=== PATIENT | male | born 1955 | race Caucasian/White ===

== ENCOUNTER 2021-05-11 14:18 | Observation (INO) ==
[2021-05-11] MEDS ORDERED: Isovue-370 500 ML BOTTLE IVP ONE (14:50)
[2021-05-11 15:03] LABS: Eosinophils # 0.2 K/mcL (0.0-0.6); Hematocrit 54.5 % (37.5-50.1); Hemoglobin 18.6 g/dL (12.9-16.9); Mean Corpuscular HGB Conc 34.1 g/dL (31.6-35.5); Mean Corpuscular Hemoglobin 33.1 pg (28.0-33.3); Mean Platelet Volume 10.3 fL (9.4-12.4); Monocytes # 0.6 K/mcL (0.0-1.3); Platelet Count 225 K/mcL (140-400); Red Blood Count 5.62 M/mcL (4.19-5.50); Red Cell Distribution Width 13.4 % (11.5-14.5); White Blood Count 9.9 K/mcL (4.3-11.1)
[2021-05-11 15:08] LABS: Prothrombin Time 11.3 Seconds (9.4-12.1)
[2021-05-11 15:11] LABS: Activated Partial Thrombo Time 31.7 Seconds (26.0-36.0)
[2021-05-11 15:22] LABS: Lymphocytes # 4.6 K/mcL (0.6-4.6); Neutrophils # 4.6 K/mcL (1.6-8.9); Platelet Estimate Normal (Normal); Reactive Lymphocytes Present (Not Present)
[2021-05-11 15:23] LABS: Alanine Aminotransferase 34 Units/L (7-52); Albumin 4.5 g/dL (3.5-5.7); Albumin/Globulin Ratio 1.6 (1.1-2.2); Alkaline Phosphatase 90 Units/L (34-104); Aspartate Amino Transferase 31 Units/L (13-39); BUN/Creatinine Ratio 8 (6-26); Bilirubin,Total 0.3 mg/dL (0.3-1.0); Blood Urea Nitrogen 8 mg/dL (8-23); Calcium 9.2 mg/dL (8.6-10.3); Carbon Dioxide 23 mEq/L (23-29); Chloride 103 mEq/L (98-107); Globulin 2.9 g/dL (2.4-3.5); Glucose 221 mg/dL (70-105); Osmolality,Calculated 289 (280-300); Potassium 3.7 mEq/L (3.5-5.1); Sodium 137 mEq/L (136-145); Total Protein 7.4 g/dL (6.4-8.9); eGFR For African Americans > 60 (> 60); eGFR For Non-African Americans > 60 (> 60)
[2021-05-11 15:48] LABS: Influenza A PCR Negative (Negative); Influenza B PCR Negative (Negative); Resp. Syncytial Virus PCR Negative (Negative); SARS-CoV-2 by PCR (In House) Negative (Negative)
[2021-05-11] MEDS ORDERED: Perflutren Lipid Microsphere 1.3 ML in 0.9 % Sodium Chloride 8.7 ML IVP PRN (16:52)
[2021-05-11] MEDS ORDERED: Naloxone 0.4 MG/ML INJ IVP PRN (16:56)
[2021-05-11] MEDS ORDERED: Melatonin 3 MG TABLET PO PRN (16:56)
[2021-05-11] MEDS ORDERED: Ondansetron 4 MG/2 ML VIAL IVP PRN (16:56)
[2021-05-11] MEDS ORDERED: Acetaminophen 325 MG TABLET PO PRN (16:56)
[2021-05-11] MEDS ORDERED: Nicotine 2 MG GUM BC PRN (16:57)
[2021-05-11 17:18] LABS: Chol/HDL Ratio 2.7 (0-4.9); Cholesterol 174 mg/dL (< 200); HDL Cholesterol 64 mg/dL (40-59); LDL Cholesterol,Calculated 52 mg/dL (< 100); Triglycerides 290 mg/dL (< 150)
[2021-05-11 17:57] LABS: Estimated Average Glucose 123 mg/dl; Hemoglobin A1C 5.9 %
[2021-05-11] MEDS: Nicotine 21 MG PATCH.TD24 TD SCH (21:50)
[2021-05-11] MEDS: Aspirin Enteric Coated 81 MG Tablet PO SCH (21:51)
[2021-05-11] MEDS: Nitrofurantoin (BID) 100 MG CAPSULE PO SCH (21:51)
[2021-05-12 02:55] VITALS: PULSE 59
[2021-05-12] MEDS ORDERED: *HR* Enoxaparin 40 MG/0.4 ML SYRINGE SQ SCH (06:00)
[2021-05-12 07:13] VITALS: BP 151/88; TEMP 98.3; O2SAT 94
[2021-05-12] MEDS: Nicotine 21 MG PATCH.TD24 TD SCH (08:16)
[2021-05-12] MEDS: Nitrofurantoin (BID) 100 MG CAPSULE PO SCH (08:17)
[2021-05-12] MEDS: Aspirin Enteric Coated 81 MG Tablet PO SCH (08:17)
== END 2021-05-12 09:38 | disposition home or self-care (01) ==
LOC: 3BNU 14:18 → EMEROOARM 14:18 → SUATTDRO 18:31 → 3BNU 19:52
PROVIDERS: ADMIT Internal Medicine; ATTEND Internal Medicine